=== PATIENT | male | born 1995 | race Caucasian/White ===

== ENCOUNTER 2020-09-29 17:18 | Outpatient (CLI) | payer OTHER ==
--- NOTE | 2020-09-30 13:17 | XRAY Report ---
PROCEDURE: Wrist 3 View RT INDICATIONS: SPRAIN OF R WRIST TECHNIQUE: 3 views of the wrist were acquired. COMPARISON: None FINDINGS: Bones: No fractures or dislocations. No suspicious bony lesions. Scaphoid view: No trauma. Soft tissues: No suspicious soft tissue calcifications. IMPRESSION: No trauma found. Reviewed by: Genaro Conteh MD on 09/30/2020 1:16 PM PDT Approved by: Genaro Conteh MD on 09/30/2020 1:16 PM PDT Station ID: [id number]
== END 2020-09-29 23:59 | disposition home or self-care (01) ==
LOC: DI.N 17:18
PROVIDERS: ATTEND Nurse Practitioner
DX: S63.591A Other specified sprain of right wrist, initial encounter (principal)

== ENCOUNTER 2022-03-06 14:13 | Emergency (ER) | payer OTHER ==
[2022-03-06 14:20] VITALS: BP 135/89
--- NOTE | 2022-03-06 15:10 | XRAY Report ---
PROCEDURE: Chest 2 View X-Ray INDICATIONS: cough TECHNIQUE: 2 views of the chest were acquired. COMPARISON: None. FINDINGS: Surgical changes and devices: None. Lungs and pleura: No pleural effusions or pneumothorax. Lungs are clear. Mediastinum: Mediastinal contours are normal. Heart size is normal. Bones and chest wall: No suspicious bony abnormalities. Soft tissues appear unremarkable. IMPRESSION: No focal infiltrates are seen. Reviewed by: Yo Sun MD on 03/06/2022 2:09 PM [facility] Approved by: Yo Sun MD on 03/06/2022 2:09 PM [facility] Station ID: [id number]
--- NOTE | 2022-03-06 15:33 | ED Physician Documentation ---
PD HPI DYSPNEA - Stated complaint Stated Complaint: CHEST PX/COUGH - Chief complaint Chief Complaint: Resp - History obtained from History obtained from: Patient - Additional information Additional information: 26-year-old woman with history of asthma presents to the evaluation of chest pain. She is had a cough that is been at times severe for the last 6 weeks. She has some chest discomfort with it but for the last 48 hours more painful and it hurts with motion and deep breathing. She denies pedal edema or calf pain. Review of Systems Constitutional: denies: Fever, Chills Cardiac: reports: Chest pain / pressure. denies: Palpitations Respiratory: reports: Dyspnea, Cough PD PAST MEDICAL HISTORY - Present Medications Home Medications: Ambulatory Orders Medication Instructions Recorded Confirmed Benzonatate [Tessalon] 200 mg PO TID PRN #20 cap 03/06/22 - Allergies Allergies/Adverse Reactions: Allergies Allergy/AdvReac Type Severity Reaction Status Date / Time No Known Drug Allergies Allergy Verified 03/06/22 14:17 PD ED PE NORMAL - Vitals Vital signs reviewed: Yes - General General: Alert and oriented X 3, No acute distress - Neck Neck: Supple, no meningeal sign, No bony TTP - Cardiac Cardiac: RRR, No murmur - Respiratory Respiratory: No respiratory distress, Other (TTP L upper chest wall) - Abdomen Abdomen: Non tender - Extremities Extremities: No edema, No calf tenderness / cord - Neuro Neuro: Alert and oriented X 3, Normal speech Results - Vitals Vitals: Vital Signs - 24 hr 03/06/22 14:17 Temperature 36.6 C Heart Rate 85 Respiratory 16 Rate Blood Pressure 135/89 H O2 Saturation 100 Oxygen O2 Source Room air - EKG (time done) 1536 Rate: Rate (enter#) (60) Rhythm: NSR Canalou: Normal Intervals: Normal DC QRS: Normal Ischemia: Normal ST segments - Rads (name of study) 2 view chest x-ray is unremarkable Radiology: Final report received, EMP read indepedently PD Medical Decision Making - ED course ED course: Given the ongoing cough and tenderness to the left chest wall which reproduces her pain this is likely musculoskeletal chest pain related to her cough. Her chest x-ray is unremarkable, 2 views interpreted independently by me. There is nothing in the history or physical to suggest thromboembolic disease although it is considered. An EKG will be done out of an abundance of caution to evaluate for ACS but given the history and physical this is very unlikely. Departure - Departure Disposition: 01 Home, Self Care Clinical Impression: Cough Qualifiers: Cough type: subacute Qualified Code(s): R05.2 - Subacute cough Condition: Good Record reviewed to determine appropriate education?: Yes Instructions: ED URI Viral Prescriptions: Benzonatate [Tessalon] 200 mg PO TID PRN #20 cap PRN Reason: Cough Comments: Your chest x-ray and EKG are looking normal. We think that the chest pain is related to the cough and I am prescribing something for the cough so hopefully you can start to heal. Call your doctor to arrange a follow-up appointment, make the next available appointment. In the interim, return anytime if worse or if new symptoms develop.
[2022-03-06 16:36] LABS: CORONAVIRUS 229E-RESP PCR NOT DETECTED; CORONAVIRUS HKU1-RESP PCR NOT DETECTED; CORONAVIRUS NL63-RESP PCR NOT DETECTED; CORONAVIRUS OC43-RESP PCR NOT DETECTED; SARS-CoV-2 -RESP PCR PANEL NOT DETECTED
[2022-03-06 16:37] LABS: B. PARAPERTUSSIS- RESP PCR PAN NOT DETECTED; B. PERTUSSIS- RESP PCR PANEL NOT DETECTED; C. PNEUMONIAE- RESP PCR PANEL NOT DETECTED; HUMAN METAPNEUMOVIRUS NOT DETECTED; INFLUENZA A- RESP PCR PANEL NOT DETECTED; INFLUENZA B - RESP PCR PANEL NOT DETECTED; M. PNEUMONIAE- RESP PCR PANEL NOT DETECTED; PARAINFLUENZA VIRUS 1 NOT DETECTED; PARAINFLUENZA VIRUS 2 NOT DETECTED; PARAINFLUENZA VIRUS 3 NOT DETECTED; PARAINFLUENZA VIRUS 4 NOT DETECTED; RHINOVIRUS/ENTEROVIRUS DETECTED; RSV- RESP PCR PANEL NOT DETECTED
== END 2022-03-06 16:22 | disposition home or self-care (01) ==
LOC: EDSEX → ED 14:13
DX: R05.2 Subacute cough (principal)
CPT/HCPCS: 87633; 93005; 99283; 99284

== ENCOUNTER 2023-04-26 10:25 | Day surgery (SDC) | payer OTHER ==
[2023-04-26] MEDS: LACTATED RINGERS 1,000 ML IV ONE ×3 (10:30→14:49)
[2023-04-26] MEDS ORDERED: ceFAZolin 2 GM VIAL ONE (10:57)
[2023-04-26] MEDS ORDERED: BUPIVACAINE 0.5% PF 10 ML VIAL ONE ×2 (11:56→12:25)
[2023-04-26] MEDS ORDERED: LIDOCAINE-MPF 1% 30 ML VIAL ONE (11:57)
--- NOTE | 2023-04-26 12:20 | ANESTHESIA ---
Pre-Anesthesia VS, & Labs - Diagnosis ventral hernia - Procedure ventral hernia repair Vital Signs: Temp Pulse Resp BP Pulse Ox O2 Flow Rate 37.1 C 69 17 106/74 100 04/26/23 10:30 04/26/23 10:30 04/26/23 10:30 04/26/23 10:30 04/26/23 10:30 Height: 5 ft 9 in Weight (kg): 60.4 kg Body Mass Index: 19.6 BMI Classification: Normal - NPO >8 hours - Is Patient ?: No Home Medications and Allergies Home Medications: Ambulatory Orders Lactobacillus Combination No.4 [Probiotic] 1 each PO DAILY 04/24/23 Albuterol Sulf [Ventolin Hfa Inhaler] 1 - 2 puffs INH Q4HR PRN 07/25/22 estradioL [Divigel] 1 each TD DAILY 07/25/22 Lactobacillus Combination No.4 [Probiotic] 1 each PO DAILY 04/24/23 Allergies/Adverse Reactions: Allergies Allergy/AdvReac Type Severity Reaction Status Date / Time gluten Allergy Nausea, Verified 07/25/22 12:25 bloating, diarrhea lactose Allergy Nausea, Verified 07/25/22 12:25 bloating, diarrhea Anes History & Medical History - Anesthetic History Anesthesia Complications: reports: No previous complications Family history of Anesthesia Complications: Denies Family history of Malignant Hyperthermia: Denies - Medical History Cardiovascular: reports: None Pulmonary: reports: Asthma Gastrointestinal: reports: None Urinary: reports: None Musculoskeletal: reports: None Endocrine/Autoimmune: reports: None Skin: reports: None Smoking Status: Never smoker Psychosocial: reports: No issues indicated Other Past Medical History: pt reports excessive bleeding requiring blodd transfusions after previos surgeries and dental work. has not been worked up. recommended seeing heatologist. Dr Gonzales made aware - Surgical History Gynecologic: reports: Hysterectomy, Oophrectomy Exam General: Alert, Oriented x3, Cooperative Dental: WNL Mouth Openin Fingerbreadth Neck Mobility: Normal Mallampati classification: I Thyromental Distance: 4-6 cm Respiratory: Lungs clear Cardiovascular: Regular rate Plan Anesthesia Type: General Consent for Procedure(s) Verified and Reviewed: Yes Code Status: Attempt Resuscitation ASA classification: 2-Mild systemic disease Is this case an emergency?: No
[2023-04-26] MEDS: BUPIVACAINE 0.5% PF 10 ML VIAL SUBQ ONE (12:23)
[2023-04-26] MEDS ORDERED: ATROPINE ABBOJECT 1 MG/10 ML SYRINGE IVP PRN (12:24)
[2023-04-26] MEDS ORDERED: MORPHINE 2 MG/ML CARPUJECT IVP PRN (12:24)
[2023-04-26] MEDS ORDERED: HYDROmorphone 0.5 MG/0.5 ML SYRINGE IVP PRN ×2 (12:24→13:56)
[2023-04-26] MEDS ORDERED: NALOXONE 0.4 MG/ML VIAL IVP PRN (12:24)
[2023-04-26] MEDS ORDERED: fentaNYL 100 MCG/2 ML VIAL IVP PRN (12:24)
[2023-04-26] MEDS ORDERED: METOCLOPRAMIDE 10 MG/2 ML VIAL IVP PRN (12:24)
[2023-04-26] MEDS ORDERED: ePHEDrine 50 MG/ML VIAL IVP PRN (12:24)
[2023-04-26] MEDS ORDERED: LIDOCAINE-PF 2% 10 ML AMP SUBQ ONE (12:33)
[2023-04-26] MEDS ORDERED: MIDAZOLAM 2 MG/2 ML VIAL ONE (12:33)
[2023-04-26] MEDS ORDERED: ONDANSETRON 4 MG/2 ML VIAL ONE ×2 (12:33→14:26)
[2023-04-26] MEDS ORDERED: fentaNYL 100 MCG/2 ML VIAL ONE (12:33)
[2023-04-26] MEDS ORDERED: PROPOFOL 200 MG/20 ML VIAL IVP ONE (12:33)
--- NOTE | 2023-04-26 12:42 | HISTORY & PHYSICAL EXAMINATION ---
Chief Complaint - Chief Complaint Chief Complaint: abdominal wall bulge and pain History of Present Illness - History Obtained From Records Reviewed: yes History obtained from: pt Exam Limitations: none - History of Present Illness HPI Comment/Other: she has a small incarcerated painful ventral hernia. History - Past Medical History Cardiovascular: reports: None Respiratory: reports: Asthma Endocrine/Autoimmune: reports: None GI: reports: None : reports: None HEENT: reports: Chronic vision loss Psych: reports: None Musculoskeletal: reports: None Derm: reports: None MRSA Hx?: No Other Past Medical History: pt reports excessive bleeding requiring blodd transfusions after previos surgeries and dental work. has not been worked up. recommended seeing heatologist. 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: Hysterectomy, Oophrectomy Meds/Allgy - Home Medications Home Medications: Ambulatory Orders Medication Instructions Recorded Confirmed Albuterol Sulf [Ventolin Hfa 1 - 2 puffs INH Q4HR PRN 07/25/22 04/24/23 Inhaler] estradioL [Divigel] 1 each TD DAILY 07/25/22 04/24/23 Lactobacillus Combination No.4 1 each PO DAILY 04/24/23 04/24/23 [Probiotic] - Allergies Allergies/Adverse Reactions: Allergies Allergy/AdvReac Type Severity Reaction Status Date / Time gluten Allergy Nausea, Verified 07/25/22 12:25 bloating, diarrhea lactose Allergy Nausea, Verified 07/25/22 12:25 bloating, diarrhea Review of Systems - Other Findings Other Findings: 10 pt ros as above otherwise unremarkable Exam - Vital Signs Vital Signs: Vital Signs x48h Temp Pulse Resp BP Pulse Ox 04/26/23 10:30 37.1 C 69 17 106/74 100 - Physical Exam General Appearance: positive: No acute distress, Alert Eyes Bilateral: positive: PERRL, EOMI ENT: positive: No signs of dehydration Neck: positive: No JVD, Trachea midline Respiratory: positive: No respiratory distress Cardiovascular: positive: Regular rate & rhythm Abdomen: positive: Other (nearly 1 cm incarcerated adipose tissue 4 cm cephalad of the umbilicus. no umbilical hernia) Neurologic/Psychiatric: positive: Oriented x3 Conclusion/Plan - Problem List (1) Ventral hernia Conclusion/Plan: plan open repair with mesh. parq held and consent obtained
[2023-04-26] MEDS ORDERED: LACTATED RINGERS 1,000 ML IV SCH (13:00)
[2023-04-26] MEDS ORDERED: ONDANSETRON 4 MG/2 ML VIAL IVP PRN (13:56)
[2023-04-26] MEDS ORDERED: HYDROcod/ACETAM 5/325 MG TABLET PO PRN (13:56)
--- NOTE | 2023-04-26 14:04 | OPERATIVE REPORT ---
Operative Report - General Procedure Date: 04/26/23 Planned Procedure: open repair ventral hernia Pre-Op Diagnosis: ventral hernia Procedure Performed: open repair ventral hernia with mesh Post Op Diagnosis: ventral hernia - Procedure Note Primary Surgeon: pirnce orozco Anesthesia Technique: General LMA Pathology: none Estimated Blood Loss (mL): 2 Drain/Tube Type: Other (none) Indications: painful hernia bulge Findings: 1 cm defect 1 x 1.5 inch polypropylene mesh preperitoneal Complications: none - Other Other Information/Narrative: The patient was prepped identified brought to the operating room and placed in supine position. Sequential compression devices were placed. She was prepped and draped in a sterile fashion and given preoperative antibiotics. The hernia was previously marked. She had a small apparently incarcerated ventral hernia 4 cm cephalad of the umbilicus. Local anesthetic was given throughout the procedure. A vertical incision was made directly over the palpable mass. Dissection proceeded down to the herniated preperitoneal adipose tissue. With mobilization and reduced. The fascia was opened up slightly to allow for better repair. The preperitoneal space was carefully developed. Hemostasis was assured. 1 and half inch tall by 1 inch wide polypropylene mesh was placed in the preperitoneal space beneath the 1 cm hernia defect. Fascia was closed over the mesh with 3 point interrupted 0 Ethibond sutures incorporating the mesh. A total of 4 sutures was placed closing the defect. The mesh lay in very good position. There were no apparent complications. Subcutaneous tissue was closed with interrupted 2-0 Vicryl suture. Buried interrupted subdermal 3-0 Vicryl sutures were then placed. Skin was closed with a running 4-0 Monocryl subcuticular suture. Steri-Strips and dressing were applied. She tolerated the procedure very well
[2023-04-26] MEDS: ONDANSETRON 4 MG/2 ML VIAL IVP PRN (14:30)
[2023-04-26] MEDS: HYDROcod/ACETAM 5/325 MG TABLET ONE (14:56)
[2023-04-26 15:24] VITALS: BP 110/77; O2SAT 99
--- NOTE | 2023-04-26 17:09 | ANESTHESIA POST OP EVALUATION ---
Anesthesia Post Eval - Post Anesthesia Eval Vitals: Last Vital Signs Temp 36.3 C L 04/26/23 15:20 Pulse 55 L 04/26/23 15:20 Resp 16 04/26/23 15:20 BP 110/77 04/26/23 15:20 Pulse Ox 99 04/26/23 15:20 O2 Flow Rate CV Function Including HR & BP: Stable Pain Control: Satisfactory Nausea & Vomiting: Negative Mental Status: Baseline Respiratory Status: Airway Patent Hydration Status: Satisfactory Anesthesia Complications: None
== END 2023-04-26 10:26 | disposition home or self-care (01) ==
LOC: SDS 10:25
PROVIDERS: ATTEND Surgery
DX: K43.6 Other and unspecified ventral hernia with obstruction, without gangrene (principal); J45.909 Unspecified asthma, uncomplicated
CPT/HCPCS: 49592; A9270; C1781; J7120